=== PATIENT | male | born 1965 | race Caucasian/White ===

== ENCOUNTER 2018-12-29 06:53 | Inpatient (IN) | payer MEDICARE, OTHER ==
[~2018-12-29] VITALS: Ht 175.3 cm; Wt 109.3 kg
[2018-12-29 07:50] LABS: BASOPHILS # (AUTO) 0.1 /CMM (0.0-0.2); BASOPHILS % (AUTO) 1.1 % (0.0-2.0); EOSINOPHILS % (AUTO) 1.3 % (0.0-6.0); HEMATOCRIT 40 % (39-51); HEMOGLOBIN 14.1 g/dL (13.5-17.5); LYMPHOCYTES # (AUTO) 1.9 /CMM (0.8-4.8); LYMPHOCYTES % (AUTO) 21.4 % (20.0-44.0); MEAN CORPUSCULAR HGB CONC 35 g/dl (31.0-36.0); MEAN CORPUSCULAR VOLUME 100 fL (80-96); MONOCYTES # (AUTO) 1.1 /CMM (0.1-1.30); NEUTROPHILS # (AUTO) 5.8 /CMM (1.8-8.9); NEUTROPHILS % (AUTO) 64.2 % (43.0-81.0); PLATELET COUNT (AUTO) 272 /CMM (150-450); RED BLOOD CELL COUNT(AUTO) 4.04 MIL/uL (4.5-6.0); WHITE BLOOD COUNT (AUTO) 9.1 K/uL (4.3-11.0)
--- NOTE | 2018-12-29 08:00 | NUR ---
PATIENT A/OX2-3, IV LINE ESTABLISHED ON R HAND G20. NO DISTRESS NOTED, VSS. WILL CONTINUE TO MONITOR.
[2018-12-29 08:01] LABS: APPEARANCE,URINE CLEAR (CLEAR); BILIRUBIN,URINE NEGATIVE (NEGATIVE); BLOOD, URINE NEGATIVE Ery/uL (NEGATIVE); COLOR,URINE DARK YELLO (YELLOW); KETONES,URINE NEGATIVE (NEGATIVE); LEUKOCYTE ESTERASE ,URINE NEGATIVE (NEGATIVE); NITRITE, URINE NEGATIVE (NEGATIVE); PROTEIN,URINE NEGATIVE (NEGATIVE); UGLUCOSE NEGATIVE (NEGATIVE); UROBILINOGEN,URINE 0.2 EU/dL (0.2)
[2018-12-29 08:18] LABS: ALANINE AMINOTRANSFERASE 18 U/L (12-78); ALBUMIN 3.4 g/dL (3.4-5.0); ASPARTATE AMINOTRANSFERASE 14 U/L (15-37); BILIRUBIN,DIRECT 0.1 mg/dL (0.0-0.2); BILIRUBIN,TOTAL 0.2 mg/dL (0.2-1.0); CALCIUM, SERUM 8.9 mg/dL (8.5-10.1); CARBON DIOXIDE 25 mmol/L (21-32); CHLORIDE 99 mmol/L (98-107); CREATININE 0.7 mg/dL (0.6-1.3); GLUCOSE 94 mg/dL (74-106); SALICYLATE 4.5 mg/dL (2.8-20.0); SODIUM SERUM 133 mmol/L (136-145); TOTAL PROTEIN, SERUM 7.4 g/dL (6.4-8.2); UREA NITROGEN, BLOOD 6 mg/dL (7-18)
[2018-12-29 08:19] LABS: ACETAMINOPHEN < 2 ug/ml (10-30); ALCOHOL, BLOOD < 3 mg/dL (0-0)
[2018-12-29 08:30] LABS: ALKALINE PHOSPHATASE 71 U/L (46-116)
[2018-12-29] MEDS ORDERED: IV NS 0.9% 250 ML IV ONE (09:00)
--- NOTE | 2018-12-29 09:30 | NUR ---
REPORT GIVEN TO YAZMIN CASTILLO PATIENT WILL BE TRANSFERRED TO ROOM 212A
[2018-12-29] MEDS ORDERED: SODI1TAB3 PO (09:40)
[2018-12-29] MEDS ORDERED: ZOLP10TA2 PO (09:40)
[2018-12-29] MEDS ORDERED: SENN-168 PO (09:40)
[2018-12-29] MEDS ORDERED: OLAN10TA3 PO (09:40)
[2018-12-29] MEDS ORDERED: LORA1TAB PO (09:40)
[2018-12-29] MEDS ORDERED: TRAV5DRO EACHEYE (09:40)
[2018-12-29] MEDS ORDERED: SIMV10TA6 PO (09:40)
[2018-12-29] MEDS ORDERED: MAGN400O6 PO (09:40)
[2018-12-29] MEDS ORDERED: OLAN20TA3 PO (09:40)
[2018-12-29] MEDS ORDERED: ACET-868 PO (09:40)
[2018-12-29] MEDS ORDERED: DIVA500T2 PO (09:40)
--- NOTE | 2018-12-29 10:30 | NUR ---
PATIENT TRANSFERRED TO ROOM 212A VIA [facility]. IN STABLE CONDITION. PIV REMOVED.
[2018-12-29 10:35] VITALS: BP 109/73
--- NOTE | 2018-12-29 11:00 | NUR ---
GPS/RN RECEVED PT FROM [facility] ER VIA [facility] ON [address] FOR GD ADMITTING ORDERS FROM DR GIRARD RECEIVED . DR PARSON SEEN THE PT WELL PT ORIGINALLY FROM [place] [phone]. NO SI OR HI AT THE TIME OF ADMISSION REPORTED. PT IS AMBULATORY NOT COOPERATIVE WITH ADMISSION PROCESS UNWILLING TO PROVIDE MEANINGFUL HISTORY.
[2018-12-29] MEDS ORDERED: MAG HYDROX/AL HYDROX/SIMETH 30 ML UDC PO PRN (11:30)
[2018-12-29] MEDS ORDERED: MAGNESIUM HYDROXIDE 30 ML UDC PO PRN (11:30)
[2018-12-29] MEDS ORDERED: MAGNESIUM HYDROXIDE 30 ML UDC PO SCH (11:30)
[2018-12-29] MEDS ORDERED: SENNOSIDES 8.6 MG TABLET PO PRN (11:30)
[2018-12-29] MEDS ORDERED: ACETAMINOPHEN 325 MG TABLET PO PRN ×2 (11:30)
[2018-12-29] MEDS: OLANZAPINE 5 MG/TAB.RAPDIS PO SCH ×2 (12:00→21:04)
[2018-12-29 16:00] VITALS: BP 99/54
[2018-12-29] MEDS: SODIUM CHLORIDE 1000 MG TABLET.SOL PO SCH (18:03)
[2018-12-29] MEDS: LORAZEPAM 0.5 MG TABLET PO PRN (19:42)
[2018-12-29 20:00] VITALS: BP 116/70
[2018-12-29] MEDS: LATANOPROST EYE DROP 0.005% 2.5 ML BOTTLE OP SCH (21:05)
[2018-12-29] MEDS: SIMVASTATIN 10 MG TABLET PO SCH (21:05)
[2018-12-29] MEDS: TEMAZEPAM 7.5 MG CAPSULE PO PRN (21:35)
[2018-12-29] MEDS ORDERED: DIVALPROEX SODIUM 500 MG TABLET.DR PO SCH (22:00)
[2018-12-30 07:05] LABS: ALBUMIN 3.2 g/dL (3.4-5.0); BILIRUBIN,TOTAL 0.4 mg/dL (0.2-1.0); CREATININE 0.6 mg/dL (0.6-1.3); TOTAL PROTEIN, SERUM 7.1 g/dL (6.4-8.2)
[2018-12-30 07:11] LABS: CHOLESTEROL 130 mg/dL (<200); HDL CHOLESTEROL 53 mg/dL (40-60); LDL 69 mg/dL (0-99); TRIGLYCERIDES 64 mg/dL (30-150)
[2018-12-30 08:00] VITALS: BP 103/61
[2018-12-30] MEDS: SODIUM CHLORIDE 1000 MG TABLET.SOL PO SCH ×2 (08:01→16:37)
[2018-12-30] MEDS: OLANZAPINE 5 MG/TAB.RAPDIS PO SCH ×2 (08:01→20:08)
[2018-12-30] MEDS: LORAZEPAM 0.5 MG TABLET PO PRN ×3 (08:05→22:58)
[2018-12-30 16:00] VITALS: BP 111/59
[2018-12-30 20:00] VITALS: BP 144/91
[2018-12-30] MEDS: SIMVASTATIN 10 MG TABLET PO SCH (21:23)
[2018-12-30] MEDS: LATANOPROST EYE DROP 0.005% 2.5 ML BOTTLE OP SCH (21:23)
[2018-12-30] MEDS: TEMAZEPAM 7.5 MG CAPSULE PO PRN (21:24)
[2018-12-31 08:00] VITALS: BP 106/57
[2018-12-31] MEDS: OLANZAPINE 5 MG/TAB.RAPDIS PO SCH (08:43)
[2018-12-31] MEDS: SODIUM CHLORIDE 1000 MG TABLET.SOL PO SCH ×2 (08:44→16:27)
[2018-12-31] MEDS: LORAZEPAM 0.5 MG TABLET PO PRN ×3 (09:50→21:40)
[2018-12-31 16:00] VITALS: BP 115/72
[2018-12-31 19:55] VITALS: BP 123/77
[2018-12-31] MEDS: SIMVASTATIN 10 MG TABLET PO SCH (21:16)
[2018-12-31] MEDS: TEMAZEPAM 7.5 MG CAPSULE PO PRN (21:16)
[2018-12-31] MEDS: LATANOPROST EYE DROP 0.005% 2.5 ML BOTTLE OP SCH (21:18)
[2018-12-31] MEDS: OLANZAPINE 10 MG TABLET PO SCH (21:18)
[2019-01-01 08:00] VITALS: BP 100/68
[2019-01-01 08:06] LABS: CALCIUM, SERUM 9.1 mg/dL (8.5-10.1); CREATININE 0.6 mg/dL (0.6-1.3); POTASSIUM 3.9 mmol/L (3.5-5.1)
[2019-01-01] MEDS: OLANZAPINE 5 MG/TAB.RAPDIS PO SCH (09:43)
[2019-01-01] MEDS: SODIUM CHLORIDE 1000 MG TABLET.SOL PO SCH ×2 (09:43→16:14)
[2019-01-01] MEDS: LORAZEPAM 0.5 MG TABLET PO PRN ×3 (10:14→22:45)
--- NOTE | 2019-01-01 10:15 | NUR ---
NURSING NOTE: PT STATING "I'M ANXIOUS, I NEED MY ATIVAN", ADMINISTERED ATIVAN 0.5MG PO PER MD ORDER. WILL CONTINUE TO MONITOR.
[2019-01-01 16:00] VITALS: BP 95/56
--- NOTE | 2019-01-01 16:07 | NUR ---
Initial Discharge Plan: Pt currently resides at [facility] located at [address] [place] [address]; ([phone]). Per pt, he would like to return there as soon as possible. SHENA called the facility and spoke to Ping who stated that the pt can return. SHENA will work with the pt and the MD regarding appropriate discharge planning. SW will form a safe and proper discharge.
--- NOTE | 2019-01-01 16:09 | NUR ---
SHENA called [facility] and spoke to Ping ([phone]) who stated that the pt can return to the facility upon his discharge.
--- NOTE | 2019-01-01 16:19 | NUR ---
NURSING NOTE: PT IN THE HALLWAY, PACING UP AND DOWN, REQUESTING ATIVAN, ADMINISTERED ATIVAN 0.5MG PO PER MD ORDER. WILL CONTINUE TO MONITOR.
[2019-01-01 20:12] VITALS: BP 114/74
[2019-01-01] MEDS: SIMVASTATIN 10 MG TABLET PO SCH (21:45)
[2019-01-01] MEDS: OLANZAPINE 10 MG TABLET PO SCH (21:45)
[2019-01-01] MEDS: LATANOPROST EYE DROP 0.005% 2.5 ML BOTTLE OP SCH (21:46)
[2019-01-01] MEDS: TEMAZEPAM 7.5 MG CAPSULE PO PRN (21:59)
[2019-01-02 08:00] VITALS: BP 99/59
[2019-01-02] MEDS: OLANZAPINE 5 MG/TAB.RAPDIS PO SCH (08:51)
[2019-01-02] MEDS: SODIUM CHLORIDE 1000 MG TABLET.SOL PO SCH ×2 (08:53→16:25)
[2019-01-02] MEDS: LORAZEPAM 0.5 MG TABLET PO PRN ×3 (09:18→23:04)
--- NOTE | 2019-01-02 09:18 | NUR ---
GPS/RN-NOTES PATIENT STATED" I"M ANXIOUS I NEED MY ATIVAN ". ATIVAN 0.5MG P.O GIVEN PRN ORDER. WILL CONT. MONITORING FOR SAFETY AND BEHAVIOR.
--- NOTE | 2019-01-02 10:20 | NUR ---
GPS/RN-NOTES PATIENT SITTING IN THE CHAIR NEXT TO THE BED,CALM,NO ACUTE DISTRESS NOTED.
[2019-01-02 16:00] VITALS: BP_SYST 100; BP_SYST 114; BP_DIAS 57; BP_DIAS 76
--- NOTE | 2019-01-02 16:18 | NUR ---
Group Therapy: SW prompted the pt to go to group but the pt refused due to his psychosis.
--- NOTE | 2019-01-02 16:27 | NUR ---
GPS/RN-NOTES PATIENT STATED" I NEED MY ATIVAN ". ATIVAN 0.5MG P.O GIVEN PRN ORDER. WILL CONT. MONITORING FOR SAFETY AND BEHAVIOR.
[2019-01-02 20:34] VITALS: BP 119/76
[2019-01-02] MEDS: LATANOPROST EYE DROP 0.005% 2.5 ML BOTTLE OP SCH (21:01)
[2019-01-02] MEDS: OLANZAPINE 10 MG TABLET PO SCH (21:02)
[2019-01-02] MEDS: SIMVASTATIN 10 MG TABLET PO SCH (21:02)
[2019-01-02] MEDS: TEMAZEPAM 7.5 MG CAPSULE PO PRN (21:31)
[2019-01-03 08:00] VITALS: BP 102/63
[2019-01-03] MEDS: SODIUM CHLORIDE 1000 MG TABLET.SOL PO SCH ×2 (08:24→16:37)
[2019-01-03] MEDS: OLANZAPINE 5 MG/TAB.RAPDIS PO SCH (08:24)
[2019-01-03] MEDS: LORAZEPAM 0.5 MG TABLET PO PRN ×2 (12:23→18:32)
--- NOTE | 2019-01-03 12:24 | NUR ---
GPS/RN-NOTES PATIENT STATED" I NEED MY ATIVAN,I'M ANXIOUS ". ATIVAN 0.5MG P.O GIVEN PRN ORDER. WILL CONT. MONITORING FOR SAFETY AND BEHAVIOR.
--- NOTE | 2019-01-03 13:30 | NUR ---
GPS/RN-NOTES PATIENT SITTING IN THE CHAIR NEXT TO THE BED,CALM,NO ACUTE DISTRESS NOTED.
[2019-01-03 16:00] VITALS: BP 100/63
--- NOTE | 2019-01-03 18:34 | NUR ---
GPS/RN-NOTES PATIENT STATED" I NEED MY SECOND ATIVAN ITS TIME ". ATIVAN 0.5MG P.O GIVEN PRN ORDER. WILL CONT. MONITORING FOR SAFETY AND BEHAVIOR.
[2019-01-03 20:00] VITALS: BP 113/73
--- NOTE | 2019-01-03 20:33 | NUR ---
ambulating in the room steady on his legs. requisting his night time medications be given early. educated him on the reasons we are strict to keep the medication on the schedule we have . he was excepting to the answer, smiling and the saying "okay".
[2019-01-03] MEDS: LATANOPROST EYE DROP 0.005% 2.5 ML BOTTLE OP SCH (22:20)
[2019-01-03] MEDS: TEMAZEPAM 7.5 MG CAPSULE PO PRN (22:21)
[2019-01-03] MEDS: SIMVASTATIN 10 MG TABLET PO SCH (22:21)
[2019-01-03] MEDS: OLANZAPINE 10 MG TABLET PO SCH (22:23)
[2019-01-04] MEDS: LORAZEPAM 0.5 MG TABLET PO PRN ×2 (00:26→08:47)
--- NOTE | 2019-01-04 05:30 | NUR ---
CLOSING NOTES: PATEINT SLEPT IN A CHAIR PART OF THE TIME FINALLY GOING TO BED AT O1:00 COVERED SELF UP AND FACED THE WINDOW AND WENT TO SLEEP SLEPT IN BED 6 HOURS TONIGHT
[2019-01-04 08:00] VITALS: BP 149/69
[2019-01-04] MEDS: OLANZAPINE 5 MG/TAB.RAPDIS PO SCH (08:47)
[2019-01-04] MEDS: SODIUM CHLORIDE 1000 MG TABLET.SOL PO SCH (08:48)
--- NOTE | 2019-01-04 13:26 | NUR ---
Discharge Note: Pt was discharged back to [facility] ([facility]) located at [address] [place] [address]; ([phone]). Pt was picked up by [facility] ([facility] #[id number]) at 11AM. There was no one to notify about the discharge other than the facility. Upon discharge, the pt appeared to be in a euthymic mood and presented with a calm and content affect. Pt denied both suicidal and homicidal ideation as well as auditory and visual hallucinations. Pt was provided with referrals for smoking cessation which are included below. Pt will continue to be under the care of his psychiatrist, Dr. Yepez located at [address] [facility] [address], [place] [address]; and his grout worker, Dr. Nash, located at [address] [place] [address]; . Smoking cessation referrals: [employer] 800-LUNGUSA [place] [place] [phone] Pt was also referred to a phone meeting for MondayJanuary 05 Step Study at 10AM to the phone number: [phone]
--- NOTE | 2019-01-04 13:30 | NUR ---
GPS/RN PT DISCAHRGED BACK TO [facility] ([facility]) located at [address] [place] [id number]; [phone]. REPORT GIVEN TO LIANNA MORALES. NO SI OR HI AT THE TIME OF DISCHARGE.[facility] [employer] RETURNED PT REFUSED TO SIGN D/C PAPERWORK. MEDS LIST/EXIT CARE PROVIDED TO AMBULANCE. MEDICALLY CLEARED BY DR MILLER. LEFT VIA AMBULANCE.
== END 2019-01-04 13:30 | DRG 885 ==
LOC: ER 06:56 → GPS 09:56
PROVIDERS: ADMIT Psychiatry & Neurology Psychosomatic Medicine; ATTEND Family Medicine
DX: F25.9 Schizoaffective disorder, unspecified (principal); E22.2 Syndrome of inappropriate secretion of antidiuretic hormone; F41.9 Anxiety disorder, unspecified; Z91.19 Patient's noncompliance with other medical treatment and regimen; F19.90 Other psychoactive substance use, unspecified, uncomplicated
CPT/HCPCS: 36415; 71045-TC; 80048-TC; 80053-TC; 80061-TC; 80076-TC; 80305; 81000-TC; 85025-TC; 87081-TC; G0480; J7030; J7050